=== PATIENT | female | born 1930 | race Caucasian/White ===

== ENCOUNTER 2021-09-12 14:45 | Inpatient (IN) | payer MEDICARE, BC ==
[~2021-09-12] VITALS: Ht 157.5 cm; Wt 54.6 kg
[2021-09-12] MEDS ORDERED: SODIUM CHLORIDE 0.9% 1,000 ML IV ONE (15:00)
[2021-09-12] MEDS ORDERED: BISMUTH SUBSALICYLATE 524 MG/30 ML SUSPENSION UDCUP PO ONE (15:00)
[2021-09-12] MEDS ORDERED: ONDANSETRON HCL 4 MG/2 ML VIAL IVP ONE (15:00)
[2021-09-12] MEDS ORDERED: CALC250T2 PO (15:14)
[2021-09-12] MEDS ORDERED: OMEG-136 PO (15:14)
[2021-09-12] MEDS ORDERED: METF-1211 PO (15:14)
[2021-09-12] MEDS ORDERED: LOSA-382 PO (15:14)
[2021-09-12] MEDS ORDERED: OMEP20 PO (15:14)
[2021-09-12] MEDS ORDERED: DOCU-270 PO (15:14)
[2021-09-12] MEDS ORDERED: LACT30L PO (15:14)
[2021-09-12] MEDS ORDERED: SIMV-259 PO (15:14)
[2021-09-12] MEDS ORDERED: MULT-1077 PO (15:14)
[2021-09-12 15:26] LABS: BASOPHILS % (AUTO) 0.5 % (0.0-2.0); EOSINOPHILS % (AUTO) 1.2 % (1.0-6.0); HEMATOCRIT 42.3 % (36-46); HEMOGLOBIN 14.4 g/dL (12.0-16.0); LYMPHOCYTES % (AUTO) 14.6 % (22.0-44.0); MEAN CORPUSCULAR HEMOGLOBIN 29.2 pg (26.0-34.0); MEAN CORPUSCULAR HGB CONC 34.1 G/dL (31.0-37.0); MEAN CORPUSCULAR VOLUME 86 fL (80-100); MONOCYTES # (AUTO) 0.7 K/uL (0.1-1.0); MONOCYTES % (AUTO) 10.4 % (2.0-9.0); NEUTROPHILS # (AUTO) 4.8 K/uL (1.8-7.7); NEUTROPHILS % (AUTO) 73.3 % (40.0-70.0); PLATELET COUNT (AUTO) 252 K/uL (150-450); RED BLOOD CELL COUNT(AUTO) 4.94 MIL/uL (4.00-5.20); RED CELL DISTRIBUTION WIDTH 14.3 % (11.5-14.5)
[2021-09-12 15:35] LABS: ANION GAP 14 mmol/L (8-16); CALCIUM, TOTAL 9.4 mg/dL (8.8-10.5); CARBON DIOXIDE 23 mmol/L (22-29); CHLORIDE 99 mmol/L (98-107); CREATININE 0.73 mg/dL (0.60-1.30); GLUCOSE,RANDOM 175 mg/dL (70-110); POTASSIUM 3.6 mmol/L (3.5-5.1); SODIUM SERUM 136 mmol/L (136-145); UREA NITROGEN, BLOOD 29 mg/dL (7-18)
[2021-09-12 15:37] LABS: GLOMERULAR FILTR. RATE CALC > 60 mL/min (>60)
[2021-09-12 15:53] LABS: B-TYPE NATRIURETIC PEPTIDE 44 pg/mL (0-100)
[2021-09-12 15:58] LABS: ALANINE AMINOTRANSFERASE 21 U/L (12-78); ALBUMIN 3.5 g/dL (3.4-5.0); ALKALINE PHOSPHATASE 91 U/L (46-116); ASPARTATE AMINOTRANSFERASE 19 U/L (15-37); BILIRUBIN,TOTAL 0.3 mg/dL (0.1-1.0); CREATINE KINASE, TOTAL ONLY 108 U/L (26-192); LIPASE 97 U/L (73-393); TOTAL PROTEIN, SERUM 7.6 g/dL (6.4-8.2)
[2021-09-12 16:08] LABS: APPEARANCE,URINE CLEAR (CLEAR); BILIRUBIN,URINE NEGATIVE (NEGATIVE); GLUCOSE, URINE (UA) NEGATIVE (NEGATIVE); KETONES,URINE NEGATIVE (NEGATIVE); LEUKOCYTE ESTERASE ,URINE NEGATIVE (NEGATIVE); NITRATE,URINE NEGATIVE (NEGATIVE); OCCULT BLOOD,URINE NEGATIVE (NEGATIVE); PROTEIN,URINE NEGATIVE (NEGATIVE); UROBILINOGEN,URINE 0.2 mg/dL (<=1.0)
[2021-09-12] MEDS ORDERED: MORPHINE SULFATE 2 MG/ML SYRINGE IVP ONE ×2 (17:30→20:45)
[2021-09-12] MEDS ORDERED: SODIUM CHLORIDE 0.9% 100 ML ONE (18:00)
[2021-09-12] MEDS ORDERED: IOHEXOL 350 MG/ML 100 ML VIAL ONE (18:00)
[2021-09-12] MEDS ORDERED: ONDANSETRON HCL 4 MG/2 ML VIAL IVP PRN (21:00)
[2021-09-12] MEDS ORDERED: RINGERS SOLUTION,LACTATED 1,000 ML IV SCH (21:00)
[2021-09-12] MEDS ORDERED: PB/HYOSCY/ATR/SCOP/LIDO/MAALOX 55 ML BOTTLE PO ONE (21:30)
[2021-09-12] MEDS ORDERED: GADOTERATE MEGLUMINE 10 MMOL/20 ML VIAL IVP ONE (21:45)
[2021-09-12] MEDS ORDERED: ASPIRIN 325 MG TABLET PO ONE (23:15)
[2021-09-12] MEDS ORDERED: HEPARIN SODIUM,PORCINE 5,000 UNITS/ML VIAL IVP ONE (23:15)
[2021-09-12] MEDS ORDERED: HEPARIN SODIUM,PORCINE 5,000 UNITS/ML VIAL IVP PRN ×2 (23:15)
[2021-09-12 23:30] VITALS: BP 145/88
[2021-09-13] MEDS ORDERED: HEPARIN SODIUM,PORCINE 5,000 UNITS/ML VIAL SQ SCH
[2021-09-13 00:02] LABS: GLUCOMETER DEV NAME(LOC) 5S.2B; GLUCOSE,POINT OF CARE 185 MG/DL (70-110)
[2021-09-13 00:22] LABS: BASOPHILS % (AUTO) 0.1 % (0.0-2.0); EOSINOPHILS % (AUTO) 0 % (1.0-6.0); HEMATOCRIT 43.8 % (36-46); HEMOGLOBIN 14.9 g/dL (12.0-16.0); LYMPHOCYTES # (AUTO) 0.6 K/uL (1.0-4.8); LYMPHOCYTES % (AUTO) 5.4 % (22.0-44.0); MEAN CORPUSCULAR HEMOGLOBIN 28.8 pg (26.0-34.0); MEAN CORPUSCULAR VOLUME 85 fL (80-100); MONOCYTES # (AUTO) 0.6 K/uL (0.1-1.0); MONOCYTES % (AUTO) 5.3 % (2.0-9.0); NEUTROPHILS # (AUTO) 9.5 K/uL (1.8-7.7); PLATELET COUNT (AUTO) 276 K/uL (150-450); RED BLOOD CELL COUNT(AUTO) 5.17 MIL/uL (4.00-5.20); RED CELL DISTRIBUTION WIDTH 14.5 % (11.5-14.5)
[2021-09-13 00:24] LABS: NEUTROPHILS % (AUTO) 89.2 % (40.0-70.0)
[2021-09-13] MEDS: MORPHINE SULFATE 2 MG/ML SYRINGE IVP PRN ×4 (00:52→22:54)
[2021-09-13] MEDS: CARVEDILOL 3.125 MG TABLET PO SCH ×3 (01:12→22:06)
[2021-09-13 05:24] VITALS: BP 140/71
[2021-09-13] MEDS ORDERED: ATORVASTATIN CALCIUM 40 MG TABLET PO ONE (06:00)
[2021-09-13] MEDS ORDERED: DEXTROSE 50%-WATER 25 GM/50 ML SYRINGE IVP PRN (06:00)
[2021-09-13 06:27] LABS: GLUCOMETER DEV NAME(LOC) 5S.1; GLUCOSE,POINT OF CARE 216 MG/DL (70-110)
[2021-09-13 07:25] VITALS: BP 157/76
[2021-09-13] MEDS: LACTULOSE 20 GM/30 ML SOLUTION UDCUP PO SCH ×2 (08:21→22:06)
[2021-09-13] MEDS: ASPIRIN 81 MG CHEWABLE TABLET PO SCH (08:21)
[2021-09-13] MEDS: DOCUSATE SODIUM 100 MG CAPSULE PO SCH ×2 (08:22→22:05)
[2021-09-13] MEDS: OMEPRAZOLE 20 MG CAPSULE PO SCH (08:22)
[2021-09-13 09:46] LABS: BASOPHILS % (AUTO) 0.3 % (0.0-2.0); EOSINOPHILS % (AUTO) 0 % (1.0-6.0); HEMATOCRIT 42.8 % (36-46); HEMOGLOBIN 14.7 g/dL (12.0-16.0); LYMPHOCYTES # (AUTO) 0.6 K/uL (1.0-4.8); LYMPHOCYTES % (AUTO) 3.6 % (22.0-44.0); MEAN CORPUSCULAR HEMOGLOBIN 29.2 pg (26.0-34.0); MEAN CORPUSCULAR HGB CONC 34.4 G/dL (31.0-37.0); MEAN CORPUSCULAR VOLUME 85 fL (80-100); MONOCYTES # (AUTO) 1.6 K/uL (0.1-1.0); MONOCYTES % (AUTO) 9.7 % (2.0-9.0); PLATELET COUNT (AUTO) 266 K/uL (150-450); RED BLOOD CELL COUNT(AUTO) 5.04 MIL/uL (4.00-5.20); RED CELL DISTRIBUTION WIDTH 14.3 % (11.5-14.5)
[2021-09-13 09:50] LABS: NEUTROPHILS % (AUTO) 86.4 % (40.0-70.0)
[2021-09-13 09:58] LABS: ANION GAP 12 mmol/L (8-16); CALCIUM, TOTAL 9.1 mg/dL (8.8-10.5); CARBON DIOXIDE 23 mmol/L (22-29); CHLORIDE 98 mmol/L (98-107); CREATININE 0.62 mg/dL (0.60-1.30); GLUCOSE,RANDOM 195 mg/dL (70-110); POTASSIUM 3.4 mmol/L (3.5-5.1); SODIUM SERUM 133 mmol/L (136-145); UREA NITROGEN, BLOOD 20 mg/dL (7-18)
[2021-09-13 10:00] LABS: GLOMERULAR FILTR. RATE CALC > 60 mL/min (>60)
[2021-09-13 11:48] VITALS: BP 146/70
[2021-09-13] MEDS ORDERED: MEBROFENIN TC99M/MCL ISOTOPE 1 EA INJ INJ ONE (13:30)
[2021-09-13] MEDS: CefTRIAXone 1 GM/DEXTROSE 50 ML IV SCH (15:11)
[2021-09-13 16:09] VITALS: BP 156/75
[2021-09-13] MEDS: MetroNIDAZOLE 500 MG TABLET PO SCH ×2 (16:11→22:05)
[2021-09-13] MEDS: ACETAMINOPHEN 325 MG TABLET PO PRN (18:00)
[2021-09-13 18:21] LABS: GLUCOMETER DEV NAME(LOC) 5S.1; GLUCOSE,POINT OF CARE 189 MG/DL (70-110)
[2021-09-13 20:12] VITALS: BP 156/65
[2021-09-13] MEDS: ATORVASTATIN CALCIUM 40 MG TABLET PO SCH (22:06)
[2021-09-13] MEDS: LOSARTAN POTASSIUM 50 MG TABLET PO SCH (22:06)
[2021-09-14 00:53] VITALS: BP 147/70
[2021-09-14] MEDS: HEPARIN SODIUM 25000 UNITS/D5W 250 ML IV PRN (01:41)
[2021-09-14] MEDS: ACETAMINOPHEN 325 MG TABLET PO PRN ×2 (04:13→10:47)
[2021-09-14 04:30] VITALS: BP 163/71
[2021-09-14 05:32] LABS: BASOPHILS % (AUTO) 0.3 % (0.0-2.0); EOSINOPHILS % (AUTO) 0 % (1.0-6.0); HEMATOCRIT 43.4 % (36-46); HEMOGLOBIN 14.7 g/dL (12.0-16.0); LYMPHOCYTES # (AUTO) 0.8 K/uL (1.0-4.8); LYMPHOCYTES % (AUTO) 4.9 % (22.0-44.0); MEAN CORPUSCULAR HEMOGLOBIN 28.7 pg (26.0-34.0); MEAN CORPUSCULAR HGB CONC 33.8 G/dL (31.0-37.0); MEAN CORPUSCULAR VOLUME 85 fL (80-100); MONOCYTES # (AUTO) 1.7 K/uL (0.1-1.0); MONOCYTES % (AUTO) 10.5 % (2.0-9.0); NEUTROPHILS # (AUTO) 13.9 K/uL (1.8-7.7); NEUTROPHILS % (AUTO) 84.3 % (40.0-70.0); PLATELET COUNT (AUTO) 259 K/uL (150-450); RED BLOOD CELL COUNT(AUTO) 5.11 MIL/uL (4.00-5.20); RED CELL DISTRIBUTION WIDTH 14.5 % (11.5-14.5)
[2021-09-14 05:50] LABS: HEMOGLOBIN A1C 6.2 % (3.8-5.6)
[2021-09-14 06:06] LABS: ALANINE AMINOTRANSFERASE 20 U/L (12-78); ALBUMIN 2.9 g/dL (3.4-5.0); ALKALINE PHOSPHATASE 72 U/L (46-116); ANION GAP 13 mmol/L (8-16); ASPARTATE AMINOTRANSFERASE 20 U/L (15-37); BILIRUBIN,TOTAL 0.7 mg/dL (0.1-1.0); CALCIUM, TOTAL 9.1 mg/dL (8.8-10.5); CARBON DIOXIDE 24 mmol/L (22-29); CHLORIDE 98 mmol/L (98-107); CHOL/HDL RATIO 2.1 (3.9-5.7); CHOLESTEROL 109 mg/dL (131-200); CREATININE 0.73 mg/dL (0.60-1.30); GLUCOSE,RANDOM 175 mg/dL (70-110); HDL CHOLESTEROL 53 mg/dL (40-60); LDL CHOL (CALC.) 47 mg/dL (0-130); POTASSIUM 3.4 mmol/L (3.5-5.1); SODIUM SERUM 135 mmol/L (136-145); TOTAL PROTEIN, SERUM 7.1 g/dL (6.4-8.2); TRIGLYCERIDES 44 mg/dL (15-150); UREA NITROGEN, BLOOD 26 mg/dL (7-18)
[2021-09-14 06:07] LABS: GLOMERULAR FILTR. RATE CALC > 60 mL/min (>60)
[2021-09-14 06:22] LABS: B-TYPE NATRIURETIC PEPTIDE 422 pg/mL (0-100)
[2021-09-14 07:26] LABS: GLUCOMETER DEV NAME(LOC) 5S.2B; GLUCOSE,POINT OF CARE 192 MG/DL (70-110)
[2021-09-14 07:26] LABS: GLUCOMETER DEV NAME(LOC) 5S.2B; GLUCOSE,POINT OF CARE 180 MG/DL (70-110)
[2021-09-14] MEDS: MORPHINE SULFATE 2 MG/ML SYRINGE IVP PRN ×3 (07:35→18:19)
[2021-09-14] MEDS ORDERED: CefTRIAXone SODIUM 1 GM/VIAL IV SCH (09:00)
[2021-09-14 10:02] VITALS: BP 154/97
[2021-09-14] MEDS ORDERED: POTASSIUM CHLORIDE 20 MEQ ER TABLET PO PRN (10:30)
[2021-09-14] MEDS: LACTULOSE 20 GM/30 ML SOLUTION UDCUP PO SCH ×2 (10:46→20:55)
[2021-09-14] MEDS: DOCUSATE SODIUM 100 MG CAPSULE PO SCH ×2 (10:46→20:55)
[2021-09-14] MEDS: MetroNIDAZOLE 500 MG TABLET PO SCH ×3 (10:46→20:55)
[2021-09-14] MEDS: POTASSIUM CHL 10 MEQ/WATER 50 ML IV PRN ×3 (10:48→18:27)
[2021-09-14] MEDS: OMEPRAZOLE 20 MG CAPSULE PO SCH (10:49)
[2021-09-14] MEDS: ASPIRIN 81 MG CHEWABLE TABLET PO SCH (10:50)
[2021-09-14 13:40] VITALS: BP 149/68
[2021-09-14] MEDS: CefTRIAXone 1 GM/DEXTROSE 50 ML IV SCH (15:53)
[2021-09-14 17:01] LABS: GLUCOMETER DEV NAME(LOC) 5N.1C; GLUCOSE,POINT OF CARE 159 MG/DL (70-110)
[2021-09-14 19:28] VITALS: BP 116/66
[2021-09-14] MEDS: CARVEDILOL 3.125 MG TABLET PO SCH (20:55)
[2021-09-14] MEDS: LOSARTAN POTASSIUM 50 MG TABLET PO SCH (20:55)
[2021-09-14] MEDS: ATORVASTATIN CALCIUM 40 MG TABLET PO SCH (20:55)
[2021-09-14 23:10] VITALS: BP 122/71
[2021-09-15] VITALS (7 sets, daily range): BP systolic 108–189; BP diastolic 62–85
[2021-09-15 02:26] LABS: GLUCOMETER DEV NAME(LOC) 5S.2B; GLUCOSE,POINT OF CARE 158 MG/DL (70-110)
[2021-09-15] MEDS: MORPHINE SULFATE 2 MG/ML SYRINGE IVP PRN ×3 (03:44→14:22)
[2021-09-15] MEDS: ACETAMINOPHEN 325 MG TABLET PO PRN ×2 (03:50→11:35)
[2021-09-15 06:21] LABS: GLUCOMETER DEV NAME(LOC) 5N.1C; GLUCOSE,POINT OF CARE 172 MG/DL (70-110)
[2021-09-15 06:36] LABS: BASOPHILS % (AUTO) 0.2 % (0.0-2.0); EOSINOPHILS % (AUTO) 0 % (1.0-6.0); HEMATOCRIT 40.2 % (36-46); HEMOGLOBIN 13.7 g/dL (12.0-16.0); LYMPHOCYTES # (AUTO) 0.6 K/uL (1.0-4.8); LYMPHOCYTES % (AUTO) 3.9 % (22.0-44.0); MEAN CORPUSCULAR HEMOGLOBIN 29.2 pg (26.0-34.0); MEAN CORPUSCULAR VOLUME 86 fL (80-100); MONOCYTES # (AUTO) 1.6 K/uL (0.1-1.0); MONOCYTES % (AUTO) 11.7 % (2.0-9.0); NEUTROPHILS # (AUTO) 11.8 K/uL (1.8-7.7); NEUTROPHILS % (AUTO) 84.2 % (40.0-70.0); PLATELET COUNT (AUTO) 238 K/uL (150-450); RED BLOOD CELL COUNT(AUTO) 4.68 MIL/uL (4.00-5.20); RED CELL DISTRIBUTION WIDTH 14.7 % (11.5-14.5)
[2021-09-15 07:07] LABS: ALANINE AMINOTRANSFERASE 16 U/L (12-78); ALBUMIN 2.5 g/dL (3.4-5.0); ALKALINE PHOSPHATASE 69 U/L (46-116); ANION GAP 9 mmol/L (8-16); ASPARTATE AMINOTRANSFERASE 14 U/L (15-37); BILIRUBIN,TOTAL 0.6 mg/dL (0.1-1.0); CALCIUM, TOTAL 8.8 mg/dL (8.8-10.5); CARBON DIOXIDE 23 mmol/L (22-29); CHLORIDE 101 mmol/L (98-107); CREATININE 0.63 mg/dL (0.60-1.30); GLUCOSE,RANDOM 184 mg/dL (70-110); POTASSIUM 3.5 mmol/L (3.5-5.1); SODIUM SERUM 133 mmol/L (136-145); TOTAL PROTEIN, SERUM 6.7 g/dL (6.4-8.2); UREA NITROGEN, BLOOD 22 mg/dL (7-18)
[2021-09-15 07:09] LABS: GLOMERULAR FILTR. RATE CALC > 60 mL/min (>60)
[2021-09-15] MEDS: CARVEDILOL 3.125 MG TABLET PO SCH ×2 (07:49→19:47)
[2021-09-15] MEDS: ASPIRIN 81 MG CHEWABLE TABLET PO SCH (07:49)
[2021-09-15] MEDS: MetroNIDAZOLE 500 MG TABLET PO SCH ×3 (07:49→19:47)
[2021-09-15] MEDS: DOCUSATE SODIUM 100 MG CAPSULE PO SCH ×2 (07:50→19:48)
[2021-09-15] MEDS: LACTULOSE 20 GM/30 ML SOLUTION UDCUP PO SCH ×2 (07:50→19:47)
[2021-09-15] MEDS: OMEPRAZOLE 20 MG CAPSULE PO SCH (07:50)
[2021-09-15] MEDS: HEPARIN SODIUM 25000 UNITS/D5W 250 ML IV PRN (09:22)
[2021-09-15] MEDS ORDERED: HydrALAZINE HCL 20 MG/ML VIAL IVP PRN (10:30)
[2021-09-15] MEDS: CefTRIAXone 1 GM/DEXTROSE 50 ML IV SCH (14:24)
[2021-09-15 17:01] LABS: GLUCOMETER DEV NAME(LOC) 5N.1C; GLUCOSE,POINT OF CARE 222 MG/DL (70-110)
[2021-09-15 18:26] LABS: GLUCOMETER DEV NAME(LOC) 5N.1C; GLUCOSE,POINT OF CARE 231 MG/DL (70-110)
[2021-09-15] MEDS: ATORVASTATIN CALCIUM 40 MG TABLET PO SCH (19:47)
[2021-09-15] MEDS: LOSARTAN POTASSIUM 50 MG TABLET PO SCH (19:48)
[2021-09-16 02:58] VITALS: BP 124/70
[2021-09-16 06:04] LABS: BASOPHILS % (AUTO) 0.1 % (0.0-2.0); EOSINOPHILS % (AUTO) 0 % (1.0-6.0); HEMATOCRIT 42.6 % (36-46); HEMOGLOBIN 14.5 g/dL (12.0-16.0); LYMPHOCYTES # (AUTO) 0.5 K/uL (1.0-4.8); LYMPHOCYTES % (AUTO) 2.6 % (22.0-44.0); MEAN CORPUSCULAR HEMOGLOBIN 29.2 pg (26.0-34.0); MEAN CORPUSCULAR VOLUME 86 fL (80-100); MONOCYTES # (AUTO) 2.8 K/uL (0.1-1.0); MONOCYTES % (AUTO) 14.7 % (2.0-9.0); NEUTROPHILS # (AUTO) 15.7 K/uL (1.8-7.7); NEUTROPHILS % (AUTO) 82.6 % (40.0-70.0); PLATELET COUNT (AUTO) 293 K/uL (150-450); RED BLOOD CELL COUNT(AUTO) 4.96 MIL/uL (4.00-5.20); RED CELL DISTRIBUTION WIDTH 14.6 % (11.5-14.5)
[2021-09-16 06:24] LABS: ALBUMIN 2.6 g/dL (3.4-5.0); BILIRUBIN,TOTAL 0.5 mg/dL (0.1-1.0); CALCIUM, TOTAL 9.2 mg/dL (8.8-10.5); CREATININE 0.9 mg/dL (0.60-1.30); MAGNESIUM 2.5 mg/dL (1.80-2.40); POTASSIUM 3.3 mmol/L (3.5-5.1); TOTAL PROTEIN, SERUM 7.2 g/dL (6.4-8.2)
[2021-09-16 08:44] VITALS: BP 128/64
[2021-09-16 10:01] LABS: GLUCOMETER DEV NAME(LOC) 5N.1C; GLUCOSE,POINT OF CARE 257 MG/DL (70-110)
[2021-09-16] MEDS ORDERED: CARVEDILOL 6.25 MG TABLET PO SCH (11:34)
[2021-09-16 11:59] LABS: COVID AG,FIA SOURCE NASAL SWAB
[2021-09-16] MEDS: PIPERACILLIN SODIUM/TAZOBACTAM 2.25 GM in DEXTROSE 5%-WATER 50 ML IV SCH ×2 (14:01→18:13)
[2021-09-16 19:11] LABS: GLUCOMETER DEV NAME(LOC) 5S.2B; GLUCOSE,POINT OF CARE 193 MG/DL (70-110)
[2021-09-16] MEDS: LOSARTAN POTASSIUM 50 MG TABLET PO SCH (20:44)
[2021-09-16] MEDS: ATORVASTATIN CALCIUM 40 MG TABLET PO SCH (20:45)
[2021-09-16] MEDS: DOCUSATE SODIUM 100 MG CAPSULE PO SCH ×2 (21:00→22:10)
[2021-09-16] MEDS: LACTULOSE 20 GM/30 ML SOLUTION UDCUP PO SCH ×2 (21:00→22:09)
[2021-09-16] MEDS: METOPROLOL TARTRATE 25 MG TABLET PO SCH (22:10)
[2021-09-16 22:19] VITALS: BP 103/75
[2021-09-16] MEDS ORDERED: SODIUM CHLORIDE 0.9% 500 ML IV ONE (23:55)
[2021-09-17] VITALS (8 sets, daily range): BP systolic 113–149; BP diastolic 47–70
[2021-09-17] MEDS: PIPERACILLIN SODIUM/TAZOBACTAM 2.25 GM in DEXTROSE 5%-WATER 50 ML IV SCH ×4 (00:02→17:11)
[2021-09-17] MEDS ORDERED: SODIUM PHOS/SODIUM BIPHOS 133 ML ENEMA PR ONE (03:45)
[2021-09-17 05:52] LABS: BASOPHILS % (AUTO) 0.1 % (0.0-2.0); EOSINOPHILS % (AUTO) 0.1 % (1.0-6.0); HEMATOCRIT 39.8 % (36-46); HEMOGLOBIN 13.4 g/dL (12.0-16.0); LYMPHOCYTES # (AUTO) 0.5 K/uL (1.0-4.8); MEAN CORPUSCULAR HEMOGLOBIN 28.7 pg (26.0-34.0); MEAN CORPUSCULAR HGB CONC 33.8 G/dL (31.0-37.0); MEAN CORPUSCULAR VOLUME 85 fL (80-100); MONOCYTES % (AUTO) 12.2 % (2.0-9.0); NEUTROPHILS # (AUTO) 14.1 K/uL (1.8-7.7); NEUTROPHILS % (AUTO) 84.6 % (40.0-70.0); PLATELET COUNT (AUTO) 311 K/uL (150-450); RED BLOOD CELL COUNT(AUTO) 4.68 MIL/uL (4.00-5.20); RED CELL DISTRIBUTION WIDTH 14.6 % (11.5-14.5)
[2021-09-17 06:09] LABS: ANION GAP 11 mmol/L (8-16); CARBON DIOXIDE 22 mmol/L (22-29); CHLORIDE 100 mmol/L (98-107); GLUCOSE,RANDOM 232 mg/dL (70-110); POTASSIUM 3.3 mmol/L (3.5-5.1); SODIUM SERUM 133 mmol/L (136-145); UREA NITROGEN, BLOOD 40 mg/dL (7-18)
[2021-09-17 06:11] LABS: GLOMERULAR FILTR. RATE CALC > 60 mL/min (>60)
[2021-09-17 07:26] LABS: GLUCOMETER DEV NAME(LOC) 5S.2B; GLUCOSE,POINT OF CARE 213 MG/DL (70-110)
[2021-09-17] MEDS: ASPIRIN 81 MG CHEWABLE TABLET PO SCH ×2 (08:00→08:40)
[2021-09-17] MEDS: DOCUSATE SODIUM 100 MG CAPSULE PO SCH ×2 (08:39→22:28)
[2021-09-17] MEDS: LACTULOSE 20 GM/30 ML SOLUTION UDCUP PO SCH ×2 (08:39→22:27)
[2021-09-17] MEDS: METOPROLOL TARTRATE 25 MG TABLET PO SCH ×2 (08:39→22:28)
[2021-09-17] MEDS: OMEPRAZOLE 20 MG CAPSULE PO SCH ×2 (08:39→08:41)
[2021-09-17] MEDS ORDERED: SODIUM CHLORIDE 0.9% 500 ML IV ONE (09:00)
[2021-09-17 09:09] LABS: ALANINE AMINOTRANSFERASE 20 U/L (12-78); ALBUMIN 2.2 g/dL (3.4-5.0); ALKALINE PHOSPHATASE 72 U/L (46-116); ASPARTATE AMINOTRANSFERASE 16 U/L (15-37); BILIRUBIN,TOTAL 0.7 mg/dL (0.1-1.0); TOTAL PROTEIN, SERUM 6.5 g/dL (6.4-8.2)
[2021-09-17] MEDS ORDERED: HEPARIN SODIUM,PORCINE 5,000 UNITS/ML VIAL IVP ONE (10:15)
[2021-09-17] MEDS ORDERED: HEPARIN SODIUM,PORCINE 5,000 UNITS/ML VIAL IVP PRN ×2 (10:15)
[2021-09-17] MEDS ORDERED: HEPARIN SODIUM 25000 UNITS/D5W 250 ML IV PRN (10:15)
[2021-09-17] MEDS: INSULIN LISPRO 100 UNITS/ML SQ PRN ×2 (11:14→22:32)
[2021-09-17 11:44] LABS: INR 1.1 (0.9-1.1)
[2021-09-17 11:51] LABS: GLUCOMETER DEV NAME(LOC) 5S.2B; GLUCOSE,POINT OF CARE 217 MG/DL (70-110)
[2021-09-17] MEDS ORDERED: IOHEXOL 350 MG/ML 100 ML VIAL ONE (13:21)
[2021-09-17] MEDS ORDERED: SODIUM CHLORIDE 0.9% 100 ML ONE (13:21)
[2021-09-17] MEDS ORDERED: POTASSIUM CHLORIDE 20 MEQ ER TABLET PO PRN (13:45)
[2021-09-17] MEDS ORDERED: POTASSIUM CHL 10 MEQ/WATER 50 ML IV PRN (13:45)
[2021-09-17] MEDS: POTASSIUM CHL 10 MEQ/WATER 50 ML IV PRN ×3 (14:25→16:52)
[2021-09-17 18:01] LABS: GLUCOMETER DEV NAME(LOC) 5S.2B; GLUCOSE,POINT OF CARE 189 MG/DL (70-110)
[2021-09-17] MEDS: LOSARTAN POTASSIUM 50 MG TABLET PO SCH (21:00)
[2021-09-17] MEDS: ATORVASTATIN CALCIUM 40 MG TABLET PO SCH (22:27)
[2021-09-17 23:01] LABS: GLUCOMETER DEV NAME(LOC) 5S.2B; GLUCOSE,POINT OF CARE 162 MG/DL (70-110)
[2021-09-18] MEDS: PIPERACILLIN SODIUM/TAZOBACTAM 2.25 GM in DEXTROSE 5%-WATER 50 ML IV SCH ×2 (00:51→06:40)
[2021-09-18 03:18] VITALS: BP 134/68
[2021-09-18 07:16] LABS: BASOPHILS % (AUTO) 0.4 % (0.0-2.0); EOSINOPHILS % (AUTO) 0.7 % (1.0-6.0); HEMATOCRIT 35.8 % (36-46); HEMOGLOBIN 12.5 g/dL (12.0-16.0); LYMPHOCYTES # (AUTO) 0.8 K/uL (1.0-4.8); LYMPHOCYTES % (AUTO) 6.4 % (22.0-44.0); MEAN CORPUSCULAR HEMOGLOBIN 29.5 pg (26.0-34.0); MEAN CORPUSCULAR HGB CONC 34.9 G/dL (31.0-37.0); MEAN CORPUSCULAR VOLUME 85 fL (80-100); MONOCYTES # (AUTO) 2.2 K/uL (0.1-1.0); MONOCYTES % (AUTO) 16.9 % (2.0-9.0); NEUTROPHILS # (AUTO) 9.9 K/uL (1.8-7.7); NEUTROPHILS % (AUTO) 75.6 % (40.0-70.0); PLATELET COUNT (AUTO) 316 K/uL (150-450); RED BLOOD CELL COUNT(AUTO) 4.22 MIL/uL (4.00-5.20); RED CELL DISTRIBUTION WIDTH 14.6 % (11.5-14.5)
[2021-09-18 07:21] LABS: GLUCOMETER DEV NAME(LOC) 5S.2B; GLUCOSE,POINT OF CARE 144 MG/DL (70-110)
[2021-09-18 07:33] LABS: ANION GAP 7 mmol/L (8-16); CALCIUM, TOTAL 8.1 mg/dL (8.8-10.5); CARBON DIOXIDE 25 mmol/L (22-29); CHLORIDE 103 mmol/L (98-107); CREATININE 0.66 mg/dL (0.60-1.30); GLUCOSE,RANDOM 151 mg/dL (70-110); POTASSIUM 3.6 mmol/L (3.5-5.1); SODIUM SERUM 135 mmol/L (136-145); UREA NITROGEN, BLOOD 29 mg/dL (7-18)
[2021-09-18 07:34] LABS: GLOMERULAR FILTR. RATE CALC > 60 mL/min (>60)
[2021-09-18 08:20] VITALS: BP 136/64
[2021-09-18] MEDS: LACTULOSE 20 GM/30 ML SOLUTION UDCUP PO SCH ×2 (09:57→21:17)
[2021-09-18] MEDS: DOCUSATE SODIUM 100 MG CAPSULE PO SCH ×2 (09:58→21:10)
[2021-09-18] MEDS: ASPIRIN 81 MG CHEWABLE TABLET PO SCH (09:58)
[2021-09-18] MEDS: METOPROLOL TARTRATE 25 MG TABLET PO SCH ×2 (09:58→21:13)
[2021-09-18] MEDS: OMEPRAZOLE 20 MG CAPSULE PO SCH ×2 (09:58→21:47)
[2021-09-18 14:22] VITALS: BP 143/64
[2021-09-18] MEDS: MORPHINE SULFATE 2 MG/ML SYRINGE IVP PRN ×2 (14:35→23:01)
[2021-09-18] MEDS: PIPERACILLIN/TAZO 3.375 GM/D5W 50 ML IV SCH ×2 (16:05→17:56)
[2021-09-18 16:43] VITALS: BP 138/68
[2021-09-18 19:01] LABS: GLUCOMETER DEV NAME(LOC) 5S.1B; GLUCOSE,POINT OF CARE 138 MG/DL (70-110)
[2021-09-18 20:13] VITALS: BP 122/62
[2021-09-18 20:41] LABS: GLUCOMETER DEV NAME(LOC) 5S.2B; GLUCOSE,POINT OF CARE 168 MG/DL (70-110)
[2021-09-18] MEDS: INSULIN LISPRO 100 UNITS/ML SQ PRN (21:07)
[2021-09-18] MEDS: ATORVASTATIN CALCIUM 40 MG TABLET PO SCH (21:10)
[2021-09-18] MEDS: LOSARTAN POTASSIUM 50 MG TABLET PO SCH (21:15)
[2021-09-18] MEDS: ACETAMINOPHEN 325 MG TABLET PO PRN (21:15)
[2021-09-19] MEDS: PIPERACILLIN/TAZO 3.375 GM/D5W 50 ML IV SCH ×5 (00:15→23:09)
[2021-09-19 00:26] VITALS: BP 110/52
[2021-09-19 05:00] VITALS: BP 105/67
[2021-09-19 05:11] LABS: GLUCOMETER DEV NAME(LOC) 5S.1B; GLUCOSE,POINT OF CARE 99 MG/DL (70-110)
[2021-09-19 07:56] LABS: BASOPHILS % (AUTO) 0.3 % (0.0-2.0); EOSINOPHILS % (AUTO) 1.2 % (1.0-6.0); HEMATOCRIT 35.4 % (36-46); HEMOGLOBIN 12.3 g/dL (12.0-16.0); LYMPHOCYTES % (AUTO) 10.3 % (22.0-44.0); MEAN CORPUSCULAR HEMOGLOBIN 29.5 pg (26.0-34.0); MEAN CORPUSCULAR HGB CONC 34.7 G/dL (31.0-37.0); MEAN CORPUSCULAR VOLUME 85 fL (80-100); MONOCYTES # (AUTO) 1.5 K/uL (0.1-1.0); MONOCYTES % (AUTO) 15.3 % (2.0-9.0); NEUTROPHILS # (AUTO) 7.2 K/uL (1.8-7.7); NEUTROPHILS % (AUTO) 72.9 % (40.0-70.0); PLATELET COUNT (AUTO) 330 K/uL (150-450); RED BLOOD CELL COUNT(AUTO) 4.16 MIL/uL (4.00-5.20); RED CELL DISTRIBUTION WIDTH 14.4 % (11.5-14.5)
[2021-09-19 07:57] LABS: ANION GAP 8 mmol/L (8-16); CALCIUM, TOTAL 8.3 mg/dL (8.8-10.5); CARBON DIOXIDE 25 mmol/L (22-29); CHLORIDE 104 mmol/L (98-107); CREATININE 0.66 mg/dL (0.60-1.30); GLUCOSE,RANDOM 88 mg/dL (70-110); POTASSIUM 3.2 mmol/L (3.5-5.1); SODIUM SERUM 137 mmol/L (136-145); UREA NITROGEN, BLOOD 23 mg/dL (7-18)
[2021-09-19 08:00] VITALS: BP 150/60
[2021-09-19 08:00] LABS: GLOMERULAR FILTR. RATE CALC > 60 mL/min (>60)
[2021-09-19] MEDS: DOCUSATE SODIUM 100 MG CAPSULE PO SCH ×2 (09:00→19:50)
[2021-09-19] MEDS: LACTULOSE 20 GM/30 ML SOLUTION UDCUP PO SCH ×2 (09:00→19:50)
[2021-09-19] MEDS: ASPIRIN 81 MG CHEWABLE TABLET PO SCH (09:37)
[2021-09-19] MEDS: OMEPRAZOLE 20 MG CAPSULE PO SCH (09:37)
[2021-09-19] MEDS: METOPROLOL TARTRATE 25 MG TABLET PO SCH ×2 (09:37→19:49)
[2021-09-19] MEDS: POTASSIUM CHL 10 MEQ/WATER 50 ML IV PRN ×3 (12:22→16:43)
[2021-09-19] MEDS: ACETAMINOPHEN 325 MG TABLET PO PRN (12:31)
[2021-09-19] MEDS: MORPHINE SULFATE 2 MG/ML SYRINGE IVP PRN ×2 (13:32→23:14)
[2021-09-19 16:00] VITALS: BP 116/53
[2021-09-19] MEDS ORDERED: SODIUM CHLORIDE 0.9% 250 ML IV ONE (16:21)
[2021-09-19 17:26] LABS: GLUCOMETER DEV NAME(LOC) 5S.1B; GLUCOSE,POINT OF CARE 121 MG/DL (70-110)
[2021-09-19 17:26] LABS: GLUCOMETER DEV NAME(LOC) 5S.1B; GLUCOSE,POINT OF CARE 102 MG/DL (70-110)
[2021-09-19] MEDS: ATORVASTATIN CALCIUM 40 MG TABLET PO SCH (19:49)
[2021-09-19] MEDS: LOSARTAN POTASSIUM 50 MG TABLET PO SCH (19:50)
[2021-09-19 21:03] VITALS: BP 133/48
[2021-09-19] MEDS: INSULIN LISPRO 100 UNITS/ML SQ PRN (21:05)
[2021-09-19 21:21] LABS: GLUCOMETER DEV NAME(LOC) 5S.1B; GLUCOSE,POINT OF CARE 148 MG/DL (70-110)
[2021-09-20 01:59] VITALS: BP 103/59
[2021-09-20 04:00] VITALS: BP 107/59
[2021-09-20] MEDS: PIPERACILLIN/TAZO 3.375 GM/D5W 50 ML IV SCH ×2 (06:00→12:52)
[2021-09-20 06:01] LABS: GLUCOMETER DEV NAME(LOC) 5S.1B; GLUCOSE,POINT OF CARE 114 MG/DL (70-110)
[2021-09-20 07:20] VITALS: BP 111/72
[2021-09-20] MEDS: LACTULOSE 20 GM/30 ML SOLUTION UDCUP PO SCH (09:00)
[2021-09-20] MEDS: OMEPRAZOLE 20 MG CAPSULE PO SCH (09:15)
[2021-09-20] MEDS: ASPIRIN 81 MG CHEWABLE TABLET PO SCH (09:15)
[2021-09-20] MEDS: METOPROLOL TARTRATE 25 MG TABLET PO SCH (09:16)
[2021-09-20] MEDS: DOCUSATE SODIUM 100 MG CAPSULE PO SCH (09:16)
[2021-09-20 11:12] VITALS: BP 125/61
[2021-09-20] MEDS: INSULIN LISPRO 100 UNITS/ML SQ PRN (12:49)
[2021-09-20 15:12] VITALS: BP 107/62
[2021-09-20 17:16] LABS: GLUCOMETER DEV NAME(LOC) 5S.2B; GLUCOSE,POINT OF CARE 141 MG/DL (70-110)
== END 2021-09-20 15:25 | DRG 444 ==
LOC: EMS 14:55 → 6S 21:28 → 5N 23:13
PROVIDERS: ADMIT Internal Medicine; ATTEND Internal Medicine
PROC: 0F943ZZ Drainage of Gallbladder, Percutaneous Approach (ICD-10-PCS; principal; 2021-09-18)
DX: K81.0 Acute cholecystitis (principal); I21.A1 Myocardial infarction type 2; E44.0 Moderate protein-calorie malnutrition; E87.1 Hypo-osmolality and hyponatremia; E87.6 Hypokalemia; E78.5 Hyperlipidemia, unspecified; E11.9 Type 2 diabetes mellitus without complications; Z20.822 Contact with and (suspected) exposure to COVID-19; I11.9 Hypertensive heart disease without heart failure; K83.8 Other specified diseases of biliary tract; I71.2 Thoracic aortic aneurysm, without rupture; E78.00 Pure hypercholesterolemia, unspecified; Z79.899 Other long term (current) drug therapy; Z68.22 Body mass index [BMI] 22.0-22.9, adult
CPT/HCPCS: 71260; 72193; 74022; 74160; 74177; 74183; 76700; 78226; 80048; 80053; 80061; 81003; 82550; 82962; 83036; 83690; 83735; 83880; 84132; 84484; 85025; 85610; 85730; 93005; 93306; 97116; 97162; 97530; 99285; A9537; J0360; J0696; J1644; J2270; J2405; J2543; J3480; J7030; J7040; J7050; J7060; Q9967

== ENCOUNTER → 2021-10-22 | Outpatient (CLI) | payer MEDICARE, BC ==
[~2021-10-22] VITALS: Ht 149.9 cm; Wt 50.7 kg
[~2021-10-22] MED LIST: ACET-2247 PO; ATOR40TA28 PO; CALC250T2 PO; DOCU-270 PO; LACT30L PO; LOSA-382 PO; METF-1211 PO; METO25 PO; MOM30 PO; MULT-1077 PO; OMEG-136 PO; OMEP20 PO; SIMV-259 PO; TRAM50TA4 PO
[2021-10-22 10:38] VITALS: BP 113/62
== END | disposition home or self-care (01) ==
LOC: SRCNTR 10:10
PROVIDERS: ATTEND Internal Medicine
DX: I10 Essential (primary) hypertension (principal); E78.5 Hyperlipidemia, unspecified; E11.9 Type 2 diabetes mellitus without complications; I71.2 Thoracic aortic aneurysm, without rupture; K81.9 Cholecystitis, unspecified
CPT/HCPCS: G0463

== ENCOUNTER 2021-10-29 08:23 | Day surgery (SDC) | payer MEDICARE, BC ==
[~2021-10-29] VITALS: Ht 156.2 cm; Wt 52.7 kg
[~2021-10-29 08:23] MED LIST changes: +LACT10SO10 PO; -LACT30L PO; -SIMV-259 PO
[2021-10-29] MEDS ORDERED: SODIUM CHLORIDE 0.9% 1,000 ML IV ONE (09:00)
[2021-10-29 09:37] LABS: GLUCOMETER DEV NAME(LOC) SDS.; GLUCOSE,POINT OF CARE 103 MG/DL (70-110)
[2021-10-29 09:38] LABS: HEMATOCRIT 40.5 % (36-46); HEMOGLOBIN 13.7 g/dL (12.0-16.0); LYMPHOCYTES % (AUTO) 12.2 % (22.0-44.0); MEAN CORPUSCULAR HEMOGLOBIN 28.6 pg (26.0-34.0); MEAN CORPUSCULAR HGB CONC 33.7 G/dL (31.0-37.0); MEAN CORPUSCULAR VOLUME 85 fL (80-100); MONOCYTES % (AUTO) 11.6 % (2.0-9.0); NEUTROPHILS # (AUTO) 6.2 K/uL (1.8-7.7); NEUTROPHILS % (AUTO) 73.2 % (40.0-70.0); PLATELET COUNT (AUTO) 300 K/uL (150-450); RED BLOOD CELL COUNT(AUTO) 4.77 MIL/uL (4.00-5.20); RED CELL DISTRIBUTION WIDTH 14.4 % (11.5-14.5)
[2021-10-29 09:46] LABS: ANION GAP 8 mmol/L (8-16); CALCIUM, TOTAL 9.2 mg/dL (8.8-10.5); CARBON DIOXIDE 29 mmol/L (22-29); CHLORIDE 103 mmol/L (98-107); CREATININE 0.67 mg/dL (0.60-1.30); GLUCOSE,RANDOM 111 mg/dL (70-110); POTASSIUM 4.3 mmol/L (3.5-5.1); SODIUM SERUM 140 mmol/L (136-145); UREA NITROGEN, BLOOD 16 mg/dL (7-18)
[2021-10-29 09:47] LABS: GLOMERULAR FILTR. RATE CALC > 60 mL/min (>60)
[2021-10-29 09:52] LABS: ALANINE AMINOTRANSFERASE 22 U/L (12-78); ALBUMIN 3.3 g/dL (3.4-5.0); ALKALINE PHOSPHATASE 101 U/L (46-116); ASPARTATE AMINOTRANSFERASE 17 U/L (15-37); BILIRUBIN,TOTAL 0.4 mg/dL (0.1-1.0); TOTAL PROTEIN, SERUM 7.4 g/dL (6.4-8.2)
[2021-10-29] MEDS ORDERED: MIDAZOLAM HCL 2 MG/2 ML VIAL ONE (10:35)
[2021-10-29] MEDS ORDERED: FentaNYL CITRATE PF 100 MCG/2 ML VIAL ONE (10:35)
[2021-10-29] MEDS ORDERED: IOHEXOL 300 MG/ML 50 ML VIAL ONE (10:35)
[2021-10-29] MEDS ORDERED: LIDOCAINE/PF 1% 30 ML VIAL ONE (10:54)
[2021-10-29] MEDS ORDERED: MIDAZOLAM HCL 2 MG/2 ML VIAL IVP ONE (11:30)
[2021-10-29] MEDS ORDERED: FentaNYL CITRATE PF 100 MCG/2 ML VIAL IVP ONE (11:30)
[2021-10-29] MEDS ORDERED: IODIXANOL 320 MG/ML 50 ML VIAL IVP ONE (11:45)
== END 2021-10-29 12:45 | disposition home or self-care (01) ==
LOC: SDS 08:23
PROVIDERS: ATTEND Family Medicine
DX: K81.9 Cholecystitis, unspecified (principal); Z93.4 Other artificial openings of gastrointestinal tract status; I10 Essential (primary) hypertension; E11.9 Type 2 diabetes mellitus without complications; Z98.890 Other specified postprocedural states; Z79.899 Other long term (current) drug therapy
CPT/HCPCS: 36415; 47536; 80053; 82962; 85025; 93005; 99152; 99153; C1729; C1887; J2250; J3010; J3490; Q9967; 36245; 75982; 76000

== ENCOUNTER → 2021-11-11 | Outpatient (CLI) | payer MEDICARE, BC ==
[~2021-11-11] MED LIST changes: +ASPI-1444 PO; -DOCU-270 PO; +DOCU-385 PO; +MAGN-160 PO; -MOM30 PO
[2021-11-11 10:39] VITALS: BP 117/63
== END | disposition home or self-care (01) ==
LOC: SRCNTR 10:24
PROVIDERS: ATTEND Internal Medicine
DX: I10 Essential (primary) hypertension (principal); E11.9 Type 2 diabetes mellitus without complications; E78.5 Hyperlipidemia, unspecified; I71.2 Thoracic aortic aneurysm, without rupture; K81.9 Cholecystitis, unspecified
CPT/HCPCS: G0463

== ENCOUNTER → 2021-11-20 | Outpatient (CLI) | payer MEDICARE, BC ==
[~2021-11-20] VITALS: Ht 154.9 cm; Wt 53.0 kg
[2021-11-20 10:47] VITALS: BP 133/66
== END | disposition home or self-care (01) ==
LOC: SRCNTR 10:37
PROVIDERS: ATTEND Internal Medicine
DX: I10 Essential (primary) hypertension (principal); E11.9 Type 2 diabetes mellitus without complications; E78.5 Hyperlipidemia, unspecified; K81.9 Cholecystitis, unspecified
CPT/HCPCS: G0463

== ENCOUNTER → 2021-12-03 | Outpatient (CLI) | payer MEDICARE, BC ==
[2021-12-03 11:11] VITALS: BP 126/49
== END | disposition home or self-care (01) ==
LOC: SRCNTR 10:50
PROVIDERS: ATTEND Internal Medicine
DX: Z09 Encounter for follow-up examination after completed treatment for conditions other than malignant neoplasm (principal); I10 Essential (primary) hypertension; E11.9 Type 2 diabetes mellitus without complications; E78.5 Hyperlipidemia, unspecified; I21.4 Non-ST elevation (NSTEMI) myocardial infarction; I71.9 Aortic aneurysm of unspecified site, without rupture; M25.551 Pain in right hip; K81.9 Cholecystitis, unspecified
CPT/HCPCS: G0463; Z7500